=== PATIENT | female | born 1990 | race Caucasian/White ===

== ENCOUNTER 2018-05-02 17:12 | Emergency (ER) | payer BC, MEDICAID ==
[~2018-05-02] VITALS: Ht 175.3 cm; Wt 113.6 kg
[~2018-05-02 17:12] MED LIST: ALBU6.7H INH; GENT5DRO4 EACHEYE
[2018-05-02 18:05] VITALS: BP 147/97
--- NOTE | 2018-05-02 19:27 | NUR ---
C/O TIGHTNESS IN CHEST. BAD COUGH HURTS TO BREATHE
[2018-05-02] MEDS ORDERED: guaiFENesin/codeine phos 10ml UD oral syrup PO ONE (20:05)
[2018-05-02] MEDS ORDERED: GUAI473S11 PO (22:07)
== END 2018-05-02 22:29 | disposition home or self-care (01) ==
LOC: ER 17:13
DX: R50.9 Fever, unspecified (principal); R05 Cough; R11.0 Nausea; R09.81 Nasal congestion; J45.909 Unspecified asthma, uncomplicated; F41.9 Anxiety disorder, unspecified; F32.9 Major depressive disorder, single episode, unspecified; Z90.49 Acquired absence of other specified parts of digestive tract; Z88.2 Allergy status to sulfonamides
CPT/HCPCS: 87502; 87503; 99283

== ENCOUNTER 2018-09-01 19:00 | Emergency (ER) | payer BC, MEDICAID ==
[~2018-09-01] VITALS: Ht 170.2 cm; Wt 120.5 kg
[2018-09-01] MEDS ORDERED: dexamethasone sod phosphate 10mg/ml inj IV STA (22:09)
[2018-09-01] MEDS ORDERED: metoclopramide 5 mg/ml inj IV ONE (22:10)
[2018-09-01] MEDS ORDERED: ketorolac trometh. 30mg/ml inj. IV ONE (22:10)
[2018-09-01] MEDS ORDERED: normal saline 1000ML IV soln IVB ONE (22:10)
[2018-09-01 22:39] LABS: BASOPHILS # (AUTO) 0.1 X10'3 (0-0.2); BASOPHILS % (AUTO) 0.9 % (0-1); EOSINOPHILS # (AUTO) 0.2 X10'3 (0-0.9); EOSINOPHILS % (AUTO) 1.3 % (0-6); HEMATOCRIT 41.8 % (35.0-45.0); HEMOGLOBIN 14.4 g/dl (12.0-16.0); LYMPHOCYTES # (AUTO) 3.9 X10'3 (1.1-4.8); LYMPHOCYTES % (AUTO) 26.3 % (21-51); MEAN CORPUSCULAR HEMOGLOBIN 30.5 PG (27.0-31.0); MEAN CORPUSCULAR HGB CONC 34.4 g/dL (33.0-36.5); MEAN CORPUSCULAR VOLUME 88.6 FL (78-98); MEAN PLATELET VOLUME 8.2 FL (7.4-10.4); MONOCYTES # (AUTO) 1.2 X10'3 (0-0.9); MONOCYTES % (AUTO) 7.8 % (2-12); NEUTROPHILS # (AUTO) 9.6 X10'3 (1.8-7.7); NEUTROPHILS % (AUTO) 63.7 % (42-75); PLATELET COUNT 287 X10'3 (140-440); RED BLOOD COUNT 4.72 X10'6 (4.20-5.60)
[2018-09-01 22:53] LABS: ALANINE AMINOTRANSFERASE 66 U/L (12-78); ALBUMIN 3.7 G/DL (3.4-5.0); ALBUMIN/GLOBULIN RATIO 0.9 (1.1-1.5); ALKALINE PHOSPHATASE 102 IU/L (46-116); ANION GAP 6 (8-16); ASPARTATE AMINO TRANSFERASE 22 U/L (10-37); BILIRUBIN,TOTAL 0.2 MG/DL (0.1-1.0); BLOOD UREA NITROGEN 15 MG/DL (7-18); BUN/CREATININE RATIO 22.1 (6.6-38.0); CALCIUM 9.6 MG/DL (8.5-10.1); CHLORIDE 104 MMOL/L (99-107); CREATININE 0.68 MG/DL (0.40-0.90); GLUCOSE 137 MG/DL (70-104); POTASSIUM 3.4 MMOL/L (3.5-5.1); SODIUM 139 MMOL/L (135-145); TOTAL CARBON DIOXIDE 29.4 MMOL/L (24-32); TOTAL PROTEIN 7.7 G/DL (6.4-8.2); eGFR > 90 ML/MIN
[2018-09-01 22:56] VITALS: BP 129/60
[2018-09-01] MEDS ORDERED: ondansetron/PF 4mg/2ml inj IV ONE (23:40)
[2018-09-01 23:43] LABS: URINE HCG NEGATIVE (NEG)
[2018-09-01 23:44] LABS: CLARITY,URINE CLEAR (Clear); COLOR,URINE YELLOW (Yellow); GLUCOSE, URINE NEGATIVE (Neg); KETONES,URINE NEGATIVE (Neg); LEUKOCYTE ESTERASE ,URINE NEGATIVE (Neg); NITRITES, URINE POSITIVE (Neg); OCCULT BLOOD,URINE NEGATIVE (Neg); PROTEIN,URINE NEGATIVE (Neg); UROBILINOGEN,URINE 0.2 E.U/dL (0.2-1.0)
[2018-09-01 23:45] LABS: UA COLLECTION TYPE CLN CATCH MIDSTREAM
[2018-09-01 23:57] LABS: BACTERIA,URINE 2+ /HPF (Neg); CAL OXALATE CRYSTALS 1+ /HPF (NEGATIVE); MUCUS STRANDS NONE SEEN /LPF (Neg); RBC,URINE NONE SEEN /HPF (0-2); SQUAMOUS EPITHELIAL CELL,UR MODERATE /LPF (FEW); WBC,URINE 0-4 /HPF (0-4)
[2018-09-02] MEDS ORDERED: ONDA4TAB6 PO (00:07)
[2018-09-02] MEDS ORDERED: SUMA100T PO (00:07)
== END 2018-09-02 00:21 | disposition home or self-care (01) ==
LOC: ER 19:01
DX: R51 Headache (principal); H53.8 Other visual disturbances; R11.0 Nausea; J45.909 Unspecified asthma, uncomplicated; Z90.49 Acquired absence of other specified parts of digestive tract; Z88.2 Allergy status to sulfonamides; Z88.8 Allergy status to other drugs, medicaments and biological substances; Z79.899 Other long term (current) drug therapy
CPT/HCPCS: 36415; 70450; 80053; 81001; 81025; 85025; 87088; 96374; 96375; 99284; J1100; J1885; J2405; J2765; J7030

== ENCOUNTER 2019-07-09 20:00 | Emergency (ER) | payer BC ==
[~2019-07-09] VITALS: Ht 172.7 cm; Wt 122.7 kg
[~2019-07-09 20:00] MED LIST changes: -ALBU6.7H INH; +ALBU6.7H9 INH; +ONDA4TAB6 PO
[2019-07-09] MEDS ORDERED: ROBCFL PO (22:00)
[2019-07-09] MEDS ORDERED: IBUP-1984 PO (22:00)
[2019-07-09 22:07] VITALS: BP 155/80
== END 2019-07-09 22:09 | disposition home or self-care (01) ==
LOC: ER 20:00
DX: J06.9 Acute upper respiratory infection, unspecified (principal); E11.9 Type 2 diabetes mellitus without complications; F41.9 Anxiety disorder, unspecified; F31.9 Bipolar disorder, unspecified; F17.200 Nicotine dependence, unspecified, uncomplicated; Z90.49 Acquired absence of other specified parts of digestive tract; Z88.2 Allergy status to sulfonamides; Z88.1 Allergy status to other antibiotic agents; Z79.899 Other long term (current) drug therapy
CPT/HCPCS: 99282

== ENCOUNTER 2019-11-15 20:52 | Emergency (ER) | payer BC ==
[~2019-11-15] VITALS: Ht 172.7 cm; Wt 120.2 kg
[2019-11-15] MEDS ORDERED: normal saline 1000ml 1,000 ML IV ONE ×2 (21:50)
[2019-11-15] MEDS ORDERED: ondansetron/PF 4mg/2ml inj IV ONE (21:55)
[2019-11-15 22:26] LABS: BASOPHILS # (AUTO) 0.1 X10'3 (0-0.2); BASOPHILS % (AUTO) 0.8 % (0-1); EOSINOPHILS # (AUTO) 0.2 X10'3 (0-0.9); EOSINOPHILS % (AUTO) 1.3 % (0-6); HEMATOCRIT 45.9 % (35.0-45.0); HEMOGLOBIN 15.5 g/dl (12.0-16.0); LYMPHOCYTES # (AUTO) 3.3 X10'3 (1.1-4.8); LYMPHOCYTES % (AUTO) 23.8 % (21-51); MEAN CORPUSCULAR HEMOGLOBIN 30.2 PG (27.0-31.0); MEAN CORPUSCULAR HGB CONC 33.8 g/dL (33.0-36.5); MEAN CORPUSCULAR VOLUME 89.2 FL (78-98); MONOCYTES # (AUTO) 0.9 X10'3 (0-0.9); MONOCYTES % (AUTO) 6.3 % (2-12); NEUTROPHILS # (AUTO) 9.4 X10'3 (1.8-7.7); NEUTROPHILS % (AUTO) 67.8 % (42-75); PLATELET COUNT 297 X10'3 (140-440); RED BLOOD COUNT 5.14 X10'6 (4.20-5.60); RED CELL DISTRIBUTION WIDTH 13.6 % (11.5-14.5); WHITE BLOOD COUNT 13.8 X10'3 (4.5-11.0)
[2019-11-15 22:29] LABS: ALANINE AMINOTRANSFERASE 161 U/L (12-78); ALBUMIN 3.7 G/DL (3.4-5.0); ALBUMIN/GLOBULIN RATIO 0.9 (1.1-1.5); ALKALINE PHOSPHATASE 131 IU/L (46-116); ANION GAP 11 (8-16); ASPARTATE AMINO TRANSFERASE 61 U/L (10-37); BILIRUBIN,TOTAL 0.3 MG/DL (0.1-1.0); BLOOD UREA NITROGEN 12 MG/DL (7-18); BUN/CREATININE RATIO 12.2 (6.6-38.0); CALCIUM 8.8 MG/DL (8.5-10.1); CHLORIDE 97 MMOL/L (99-107); CREATININE 0.98 MG/DL (0.40-0.90); GLUCOSE 355 MG/DL (70-104); LIPASE 117 U/L (73-393); SODIUM 133 MMOL/L (135-145); TOTAL CARBON DIOXIDE 24.9 MMOL/L (24-32); eGFR 66 ML/MIN
[2019-11-15 22:31] LABS: POTASSIUM 3.8 MMOL/L (3.5-5.1)
[2019-11-15 23:32] LABS: CLARITY,URINE CLEAR (Clear); COLOR,URINE YELLOW (Yellow); GLUCOSE, URINE >=1000 mg/dl (Neg); KETONES,URINE 15 mg/dl (Neg); LEUKOCYTE ESTERASE ,URINE NEGATIVE (Neg); NITRITES, URINE NEGATIVE (Neg); OCCULT BLOOD,URINE NEGATIVE (Neg); PROTEIN,URINE NEGATIVE (Neg); URINE HCG NEGATIVE (NEG); UROBILINOGEN,URINE 0.2 E.U/dL (0.2-1.0)
[2019-11-15 23:37] LABS: UA COLLECTION TYPE CLN CATCH MIDSTREAM
[2019-11-15 23:38] LABS: BACTERIA,URINE NONE SEEN /HPF (Neg); RBC,URINE NONE SEEN /HPF (0-2); SQUAMOUS EPITHELIAL CELL,UR MODERATE /LPF (FEW); WBC,URINE 0-4 /HPF (0-4)
[2019-11-16] MEDS ORDERED: ONDA4TAB6 PO (00:22)
[2019-11-16] MEDS ORDERED: normal saline 1000ml 1,000 ML IV ONE (00:25)
[2019-11-16 01:32] VITALS: BP 129/80
== END 2019-11-16 01:36 | disposition home or self-care (01) ==
LOC: ER 20:53
DX: E11.65 Type 2 diabetes mellitus with hyperglycemia (principal); R11.2 Nausea with vomiting, unspecified; F41.9 Anxiety disorder, unspecified; F31.9 Bipolar disorder, unspecified; Z90.49 Acquired absence of other specified parts of digestive tract; Z72.89 Other problems related to lifestyle; Z88.2 Allergy status to sulfonamides; Z88.8 Allergy status to other drugs, medicaments and biological substances; Z79.899 Other long term (current) drug therapy
CPT/HCPCS: 36415; 71045; 80053; 81001; 81025; 82948; 83690; 85025; 96361; 96374; 99284; J2405; J7030

== ENCOUNTER 2020-02-20 14:46 | Emergency (ER) | payer BC ==
[~2020-02-20] VITALS: Ht 172.7 cm; Wt 125.5 kg
[2020-02-20 14:59] VITALS: BP 122/77
== END 2020-02-20 17:05 | disposition home or self-care (01) ==
LOC: ER 14:46
DX: S93.409A Sprain of unspecified ligament of unspecified ankle, initial encounter (principal); E11.9 Type 2 diabetes mellitus without complications; F41.9 Anxiety disorder, unspecified; F31.9 Bipolar disorder, unspecified; F32.9 Major depressive disorder, single episode, unspecified; R51.9 Headache, unspecified; F17.200 Nicotine dependence, unspecified, uncomplicated; Z98.890 Other specified postprocedural states; Z90.49 Acquired absence of other specified parts of digestive tract; Z88.2 Allergy status to sulfonamides; Z88.8 Allergy status to other drugs, medicaments and biological substances; Z79.899 Other long term (current) drug therapy; X50.9XXA Other and unspecified overexertion or strenuous movements or postures, initial encounter; Y93.89 Activity, other specified; Y92.89 Other specified places as the place of occurrence of the external cause; Y99.8 Other external cause status
CPT/HCPCS: 99283

== ENCOUNTER 2024-04-19 08:11 | Emergency (ER) | payer BC, MEDICAID ==
[~2024-04-19] VITALS: Ht 170.2 cm; Wt 115.9 kg
[~2024-04-19 08:11] MED LIST changes: +ALBU6.7H14 INH; -ALBU6.7H9 INH; +GEN0.3OS EACHEYE; -GENT5DRO4 EACHEYE
[2024-04-19 08:21] VITALS: BP 138/99; PULSE 90; RESP 15; TEMP 97.9; O2SAT 96
[2024-04-19] MEDS ORDERED: DICL50TA8 PO (08:55)
== END 2024-04-19 09:02 | disposition home or self-care (01) ==
LOC: ER 08:11
DX: M25.571 Pain in right ankle and joints of right foot (principal); E11.9 Type 2 diabetes mellitus without complications; F41.9 Anxiety disorder, unspecified; F32.A Depression, unspecified; Z72.89 Other problems related to lifestyle; Z79.899 Other long term (current) drug therapy; Z98.890 Other specified postprocedural states; Z88.2 Allergy status to sulfonamides; Z88.8 Allergy status to other drugs, medicaments and biological substances; Z90.49 Acquired absence of other specified parts of digestive tract
CPT/HCPCS: 73610; 99283; A6449

== ENCOUNTER 2024-10-10 14:48 | Emergency (ER) | payer MEDICAID ==
[~2024-10-10] VITALS: Ht 170.2 cm; Wt 106.8 kg
[~2024-10-10 14:48] MED LIST changes: +DICL50TA8 PO
--- NOTE | 2024-10-10 15:04 | ELECTROCARDIOGRAPH REPORT ---
[facility] Test Date: 2024-10-10 Test Time: 14:54:53 Pat Name: ZEINAB DUNBAR Department: EMERGENCY ROOM Patient ID: [id number] Room: Gender: F Fitness Technician: : 1990 Requested By: NANCY PERDOMO Order Number: [id number] Reading MD: Measurements Intervals [place] Rate: 96 P: 71 [place]: 142 QRS: 66 QRSD: 94 T: 38 QT: 352 QTc: 445 Interpretive Statements Sinus rhythm Low voltage, precordial leads Baseline wander in lead(s) III,V2,V4,V5 Please click the below link to view image of tracing.
--- NOTE | 2024-10-10 15:07 | Physician Documentation ---
History of Present Illness ~ Stated Complaint: CP Time Seen by MD: 15:55 Primary Medical Doctor: NONE HPI This is a 34-year-old female with a history of type 2 diabetes who presents today with acute onset sharp midsternal chest pain. States that she does have a history of anxiety and takes hydroxyzine. As that she check her blood pressure this morning, she thought maybe her blood pressure was low secondary to the hydroxyzine for her anxiety. She states that she was told to come here by her nursing friend just to get checked out to make sure she does not keel over" patient reports pain came on at rest and is episodic in nature lasting approximately 20-30 seconds described as sharp and without palliating or precipitating factors. Denies: Nausea vomiting diarrhea radiating chest pain or back pain Day of Onset: Oct 10, 2024 Tetanus within 5 Years?: No Allergies: Coded Allergies: sulfamethoxazole (Unverified Allergy, Unknown, 07/23/14) trimethoprim (Unverified Allergy, Unknown, 07/23/14) Active Prescriptions See Medication Reconciliation Form. Medication Reconciliation Scheduled Albuterol Sulfate (Proventil Hfa), 2 PUFFS INH Q6H Diclofenac Sodium (Diclofenac Sodium), 1 TAB PO Q12H Gentamicin Sulfate (Gentak), 2 DROP EACHEYE QID Ondansetron Hcl (Zofran), 1 TAB PO Q6H Ondansetron Hcl (Zofran), 1 TAB PO Q6H Past Medical History Past Medical History: Headache, Diabetes, Anxiety, Bipolar, Depression Past Surgical History: cholecystectomy, Alcohol Use: Occasionally Drug Use: none Lives with: Family Lives In: Home Occupation: employed Review of Systems All Other Systems at this time: Reviewed and Negative ROS As stated above in the HPI, otherwise all systems are reviewed and negative. Physical Exam Physical Exam General: Alert, no apparent distress. Chest: No accessory muscle use. Respiratory: No increased work of breathing, speaking full clear sentences, no respiratory distress, lung sounds clear in all sommers Cardiovascular: Regular rate and rhythm, no murmurs. Back: No CVA tenderness Gastrointestinal: Soft, nontender, nondistended. Bowels sounds present. Neurologic: Oriented x4. Psychiatric: Normal mood and affect. Skin: Normal color, warm and dry. No edema, no ecchymosis. Progress Results/Orders Results/Orders Vital Signs 10/10/24 10/10/24 10/10/24 10/10/24 15:03 15:55 15:55 17:01 Temp 97.8 97.8 98.0 Pulse 98 88 87 Resp 17 12 13 16 B/P (MAP) 141/98 131/88 (102) 119/83 Pulse Ox 99 95 97 O2 Flow Rate 0 Laboratory Tests Test 10/10/24 15:52 White Blood Count 9.9 Red Blood Count 5.05 Hemoglobin 15.3 Hematocrit 43.9 Mean Corpuscular Volume 86.8 Mean Corpuscular Hemoglobin 30.2 Mean Corpuscular Hemoglobin Concent 34.8 Red Cell Distribution Width 13.3 Platelet Count 330 Mean Platelet Volume 7.9 Neutrophils (%) (Auto) 69.7 Lymphocytes (%) (Auto) 21.6 Monocytes (%) (Auto) 6.9 Eosinophils (%) (Auto) 1.0 Basophils (%) (Auto) 0.8 Neutrophils # (Auto) 6.9 Lymphocytes # (Auto) 2.1 Monocytes # (Auto) 0.7 Eosinophils # (Auto) 0.1 Basophils # (Auto) 0.1 CBC Comment Sodium Level 135 Potassium Level 3.8 Chloride Level 100 Carbon Dioxide Level 30.0 Anion Gap 5 L Blood Urea Nitrogen 5 L Creatinine 0.63 Estimated GFR/1.73 m2 > 90 BUN/Creatinine Ratio 7.9 L Glucose Level 148 H Calcium Level 9.0 Troponin I High Sensitivity 4 Albumin 3.6 Chemistry Comments EKG/XRAY/CT/US/VASC/MRI EKG : Additional Comment EKG at 1454 interpreted by myself as sinus rhythm at a rate of 96, normal axis, no ST segment elevation or depression Chest X-Ray : Additional Comments EXAM: DI CHEST,SINGLE VIEW CLINICAL HISTORY: CP TECHNIQUE: Single AP view of the chest WID: COMPARISON: CHEST,SINGLE VIEW on DOS: 11/15/19 FINDINGS: Lines and tubes: None Chest: The heart size and pulmonary vasculature is within normal limits. No pleural effusion, pneumothorax, or consolidation. The osseous structures are grossly intact. IMPRESSION: No acute cardiopulmonary abnormality. Electronically Signed by:CONSTANZA MCCRACKEN MD Date & Time: 10/10/24 1525 Dictated by: CONSTANZA MCCRACKEN MD Dictation date and time: 10/10/24 6119 I have reviewed and agree with the radiology report. I have reviewed and interpreted the imaging as: No focal consolidation or pneumothorax Heart Score: Heart Score Response (Comments) Value History Slightly Suspicious 0 EKG Normal 0 Age <45 0 Risk Factors 1 or 2 risk factors 1 Troponin Normal limit 0 Total 1 Medical Decision Making Findings This 34-year-old female with a history of anxiety presented with left-sided no nradiating intermittent chest pain without palliating or provoking factors which was described as sharp, patient was otherwise well-appearing and remainder of physical exam benign. EKG did not demonstrate evidence of dysrhythmia, infarction or ischemia, troponin was not elevated and additional labs did not demonstrate evidence of metabolic or electrolyte derangement. It was reassuring patient reported no associated shortness of breath, nausea, or diaphoresis. Heart score of 1, PERC negative, Wells' negative. I have low suspicion for myocardial infarction, pulmonary embolism, or aortic dissection. This patient is otherwise well-appearing with a benign physical exam stable vital signs she is appropriate for outpatient follow up with primary care. Patient provided careful return to care precautions and follow up instructions which he verbalized understanding of. Differential Dx:Considerations: Include: Pneumothorax, Pulmonary contusion, Other (MD, pulmonary embolism, aortic dissection, costochondritis, musculoskeletal pain, anxiety) Departure Time of Disposition: 16:48 Disposition: HOME / SELF CARE / HOMELESS Impression: Primary Impression: Chest pain Qualified Codes: R07.9 - Chest pain, unspecified Condition: Improved Discharge Instructions: Nonspecific Chest Pain, Adult Additional Instructions: The cause of your chest pain is not fully known though it does not appear to be caused by an emergent cardiac problem at this time, please follow up with her primary care provider for further evaluation, you may use ibuprofen and or Tylenol as needed for pain as directed by [id number] packaging. Please follow up with your primary care provider in the next few days. Please return to the emergency department for any new or worsening concerning symptoms including but not including worsening chest pain, chest pain with sweating, shortness of breath, or vomiting, or if you experience difficulty breathing. Referrals: NO PRIMARY CARE PROVIDER (PCP) Education Educated: Patient Educated regarding: diagnosis, treatment, prognosis, need for follow up Signature Scribe Signature: No scribe Attestation: The note accurately reflects work and decisions made by me.MARK ANTHONY Vasquez 10/10/24 20:38 ENEDINA HORTON NP Oct 10, 2024 15:07 DAIANA MARTINEZ Oct 10, 2024 16:36
--- NOTE | 2024-10-10 15:28 | RADIOLOGY REPORT ---
EXAM: DI CHEST,SINGLE VIEW CLINICAL HISTORY: CP TECHNIQUE: Single AP view of the chest WID: COMPARISON: CHEST,SINGLE VIEW on DOS: 11/15/19 FINDINGS: Lines and tubes: None Chest: The heart size and pulmonary vasculature is within normal limits. No pleural effusion, pneumothorax, or consolidation. The osseous structures are grossly intact. IMPRESSION: No acute cardiopulmonary abnormality.
[2024-10-10 16:03] LABS: BASOPHILS # (AUTO) 0.1 X10'3 (0-0.2); BASOPHILS % (AUTO) 0.8 % (0-1); EOSINOPHILS # (AUTO) 0.1 X10'3 (0-0.9); HEMATOCRIT 43.9 % (35.0-45.0); HEMOGLOBIN 15.3 g/dl (12.0-16.0); LYMPHOCYTES # (AUTO) 2.1 X10'3 (1.1-4.8); LYMPHOCYTES % (AUTO) 21.6 % (21-51); MEAN CORPUSCULAR HEMOGLOBIN 30.2 PG (27.0-31.0); MEAN CORPUSCULAR HGB CONC 34.8 g/dL (33.0-36.5); MEAN CORPUSCULAR VOLUME 86.8 FL (78-98); MEAN PLATELET VOLUME 7.9 FL (7.4-10.4); MONOCYTES # (AUTO) 0.7 X10'3 (0-0.9); MONOCYTES % (AUTO) 6.9 % (2-12); NEUTROPHILS # (AUTO) 6.9 X10'3 (1.8-7.7); NEUTROPHILS % (AUTO) 69.7 % (42-75); PLATELET COUNT 330 X10'3 (140-440); RED BLOOD COUNT 5.05 X10'6 (4.20-5.60); RED CELL DISTRIBUTION WIDTH 13.3 % (11.5-14.5); WHITE BLOOD COUNT 9.9 X10'3 (4.5-11.0)
[2024-10-10 16:13] LABS: ALBUMIN 3.6 G/DL (3.4-5.0); ANION GAP 5 (8-16); BLOOD UREA NITROGEN 5 MG/DL (7-18); BUN/CREATININE RATIO 7.9 (10.0-20.0); CHLORIDE 100 MMOL/L (99-107); CREATININE 0.63 MG/DL (0.40-0.90); GLUCOSE 148 MG/DL (70-104); POTASSIUM 3.8 MMOL/L (3.5-5.1); SODIUM 135 MMOL/L (135-145); eCRCL 120 ML/MIN; eGFR > 90 ML/MIN
[2024-10-10 17:01] VITALS: BP 119/83; PULSE 87; RESP 16; TEMP 98; O2SAT 97
== END 2024-10-10 17:02 | disposition home or self-care (01) ==
LOC: ER 14:48
DX: R07.2 Precordial pain (principal); E11.9 Type 2 diabetes mellitus without complications; F31.9 Bipolar disorder, unspecified; F41.9 Anxiety disorder, unspecified; Z88.1 Allergy status to other antibiotic agents; Z88.2 Allergy status to sulfonamides; Z90.49 Acquired absence of other specified parts of digestive tract
CPT/HCPCS: 36415; 71045; 80048; 84484; 85025; 93005; 99285

== ENCOUNTER 2025-03-01 11:09 | Emergency (ER) | payer MEDICAID ==
[~2025-03-01] VITALS: Ht 170.2 cm; Wt 92.6 kg
[2025-03-01 11:18] VITALS: BP 100/82; PULSE 112; RESP 18; TEMP 98.5; O2SAT 99
--- NOTE | 2025-03-01 11:24 | Physician Documentation ---
History of Present Illness ~ Chief Complaint: Dizziness Stated Complaint: DIZZINESS/LIPS TURNING BLUE Time Seen by MD: 12:10 Primary Medical Doctor: NONE HPI Patient is a pleasant 35-year-old female that presents to the emergency department for evaluation of intermittent dizziness/vertigo times several months. Patient reports that the episodes come on randomly. Patient reports that she has a history of migraine that she takes Imitrex for. Patient reports that the most recent episode of her dizziness/vertigo developed after her last dose of Imitrex. Patient reports that she has been dizzy with the room spinning all day today. Patient reports a slight headache currently no nausea vomiting diarrhea fever, chills chest pain shortness of breath at this time. Medication Reconciliation Allergies: Coded Allergies: sulfamethoxazole (Unverified Allergy, Unknown, 03/01/25) trimethoprim (Unverified Allergy, Unknown, 03/01/25) Scheduled Albuterol Sulfate (Proventil Hfa), 2 PUFFS INH Q6H Diclofenac Sodium (Diclofenac Sodium), 1 TAB PO Q12H Gentamicin Sulfate (Gentak), 2 DROP EACHEYE QID Ondansetron Hcl (Zofran), 1 TAB PO Q6H Ondansetron Hcl (Zofran), 1 TAB PO Q6H Past Medical History Past Medical History: Headache, Diabetes, Anxiety, Bipolar, Depression Past Surgical History: cholecystectomy, Alcohol Use: Occasionally Drug Use: none Lives with: Family Lives In: Home Occupation: employed Review of Systems ROS As stated above in the HPI, otherwise all systems are reviewed and negative. Physical Exam Vital Signs: Temperature: 98.5, Source: Temporal, Heart Rate: 112, Respiratory Rate: 18, BP: 100/82, Pulse Oximetry: 99, Weight: 92.600 Oxygen Flow Rate: 0 Physical Exam VITALS: Reviewed and as above. GENERAL: Alert, no apparent distress. HEENT: Normocephalic, atraumatic, PERRL, EOMI, dry mucosa, no erythema RESPIRATORY: Lungs clear, normal breath sounds, no respiratory distress. CHEST: No accessory muscle use, no retractions CV: Regular rate, rhythm, no edema, no murmur, No: JVD GI: Soft, non-tender, bowels sounds present, no rebound, guarding, or rigidity BACK: No CVA tenderness, or swelling MUSCULOSKELETAL No deformities, no edema SKIN: Warm and dry, no rash NEURO: Oriented x4, No motor or sensory deficit PSYCH: Normal mood and affect, no agitation Progress Results/Orders Results/Orders Orders - CHERELLE CHOI INSEAM TRIMMER Urinalysis, Cult If Indicated (03/01/25 13:02) Hcg, Ur Ql (03/01/25 13:02) * Iv Access / Saline Lock * (03/01/25 14:13) Ct Head (03/01/25 14:44) Completed Orders - CHERELLE CHOI INSEAM TRIMMER Electrocardiogram (03/01/25 11:14) Cbc/Diff (03/01/25 13:02) CMP (03/01/25 13:02) Meclizine Tablets (Antivert Tablet) (03/01/25 13:20) Ct Head (03/01/25 14:44) Medications Received in ER Medications (Trade) Dose Ordered Sig/Kalia Route PRN Reason Start Time Stop Time Status Last Admin Dose Admin (Antivert tablet) 12.5 mg ONCE ONCE PO 03/01/25 13:20 03/01/25 13:21 DC 03/01/25 13:38 12.5 MG Vital Signs 03/01/25 11:18 Temp 98.5 Pulse 112 Resp 18 B/P (MAP) 100/82 Pulse Ox 99 O2 Flow Rate 0 Laboratory Tests Test 03/01/25 13:39 White Blood Count 11.0 Red Blood Count 5.31 Hemoglobin 16.0 Hematocrit 46.5 H Mean Corpuscular Volume 87.6 Mean Corpuscular Hemoglobin 30.1 Mean Corpuscular Hemoglobin Concent 34.4 Red Cell Distribution Width 13.7 Platelet Count 347 Mean Platelet Volume 8.8 Neutrophils (%) (Auto) 65.0 Lymphocytes (%) (Auto) 26.6 Monocytes (%) (Auto) 6.7 Eosinophils (%) (Auto) 0.7 Basophils (%) (Auto) 1.0 Neutrophils # (Auto) 7.2 Lymphocytes # (Auto) 2.9 Monocytes # (Auto) 0.7 Eosinophils # (Auto) 0.1 Basophils # (Auto) 0.1 CBC Comment Sodium Level 136 Potassium Level 4.2 Chloride Level 101 Carbon Dioxide Level 26.7 Anion Gap 8 Blood Urea Nitrogen 12 Creatinine 0.66 Estimated GFR/1.73 m2 > 90 BUN/Creatinine Ratio 18.2 Glucose Level 101 Calcium Level 8.9 Total Bilirubin 0.5 Aspartate Amino Transf (AST/SGOT) 16 Alanine Aminotransferase (ALT/SGPT) 29 Alkaline Phosphatase 94 Total Protein 8.2 Albumin 4.0 Globulin 4.2 Albumin/Globulin Ratio 1.0 L Chemistry Comments Medical Decision Making Additional information obtaine: other Findings 35-year-old female presented with intermittent vertigo episodes over several years, most recently following sumatriptan use for migraine. Associated symptoms included mild nausea; she denied vomiting, diarrhea, fever, or chills. Past medical history is notable for migraines. Diagnostic evaluation: Recent ECG at PCP was unremarkable. Laboratory studies today were within normal limits. Head CT was negative for acute pathology. No focal neurologic deficits were noted during ED assessment. The patients vertigo episodes are consistent with a spontaneous episodic vestibular syndrome, most likely vestibular migraine given her migraine history and absence of other concerning features. No evidence of central nervous system pathology or acute stroke was found, and imaging is low-yield in isolated vertigo without neurologic findings. Medical decision-making: Differential diagnosis included vestibular migraine, benign paroxysmal positional vertigo, Meniere disease, and vestibular neuritis. The clinical presentation, negative imaging, and history support vestibular migraine as the most likely etiology. No acute intervention required beyond symptomatic management. Treatment and disposition: Patient is being discharged with a prescription for meclizine 12.5 mg for short-term symptomatic relief of vertigo and nausea. Meclizine is a commonly used vestibular suppressant for acute vertigo; prolonged use is discouraged due to potential inhibition of central compensation and anticholinergic side effects. Patient advised to use meclizine only as needed for acute episodes and to avoid chronic use. She will follow up with her primary care provider for further evaluation and consideration of migraine prophylaxis if attacks persist. Return precautions: Patient instructed to return to the ED for worsening symptoms, new neurologic deficits, persistent vomiting, or other concerning changes. Summary: Presentation and workup are consistent with vestibular migraine. No evidence of central pathology. Discharged with short-term vestibular suppressant and outpatient follow-up. Differential Dx:Considerations: Include: anemia, CVA, dehydration, dysrhythmia, electrolyte imbalance, encephalopathy, Guillain-[place], hypoglycemia, hypotension, hypovolemia, labyrinthitis, Meniere's disease, myasathenia gravis, myocardial infarction, pulmonary embolus, renal failure, respiratory failure, T IA, VBI, vertigo central, vertigo peripheral, vestibular neuronitis, other Departure Disposition: 01 HOME / SELF CARE / HOMELESS Impression: Primary Impression: Vertigo Condition: Stable Discharge Instructions: Dizziness, Vertigo Additional Instructions: You were seen today for vertigo (a spinning or dizzy feeling) after taking your migraine medication. Your tests, including blood work, ECG, and a head CT scan, were normal. You are being discharged with a prescription for meclizine 12.5 mg to help with your symptoms. How to take meclizine: Take meclizine 12.5 mg by mouth as prescribed for dizziness or nausea. Use only as needed for symptoms. Do not take more than the recommended dose. Meclizine may cause drowsiness. Avoid driving, operating machinery, or drinking alcohol while taking this medication. If you are , , or have medical conditions like asthma, glaucoma, or trouble urinating, talk to your doctor before using meclizine. What to expect: Meclizine can help reduce dizziness and nausea, but it should only be used for a few days. Most people feel better with rest and time. Avoid sudden movements and get up slowly from sitting or lying down to prevent falls. Follow-up: Schedule a follow-up visit with your primary care provider to discuss your vertigo and migraine management. When to return to the emergency department: If your symptoms get worse or do not improve If you have new symptoms like trouble speaking, weakness, numbness, severe headache, vision changes, fainting, chest pain, or trouble walking If you have repeated vomiting, fever, or chills Other tips: Keep track of your symptoms and any triggers (such as certain foods, stress, or lack of sleep) that may make your migraines or vertigo worse. Avoid activities that could be dangerous if you become dizzy. If you have any questions or concerns, contact your healthcare provider. Referrals: NO PRIMARY CARE PROVIDER (PCP) Prescriptions Meclizine HCl (Meclizine HCl) 12.5 Mg Tablet 1 TAB PO Q8H for dizziness for 10 Days, #30 TAB 0 Refills Prov: CHERELLE CHOI 03/01/25 Education Educated: Patient Educated regarding: diagnosis, treatment, need for follow up Signature Scribe Signature: A Attestation: Scribed for Cherelle Choi by MARK ANTHONY Bishop . 03/01/25 16:45 CHERELLE CHOI Mar 01, 2025 11:24
--- NOTE | 2025-03-01 12:31 | ELECTROCARDIOGRAPH REPORT ---
[facility] Test Date: 2025-03-01 Test Time: 11:14:44 Pat Name: ZEINAB DUNBAR Department: EMERGENCY ROOM Patient ID: [id number] Room: Gender: F Warp Clamper: LINH : 1990 Requested By: MARGARITA CHOI Order Number: [id number] Reading MD: Dr. TORIN Llanos Measurements Intervals [place] Rate: 118 P: 73 [place]: 133 QRS: 41 QRSD: 88 T: 117 QT: 310 QTc: 435 Interpretive Statements Atrial-paced complexes Aberrant conduction of SV complex(es) Borderline T wave abnormalities Baseline wander in lead(s) V4,V5,V6 Electronically Signed On 03-03-2025 17:38:[address] TORIN Llanos Please click the below link to view image of tracing.
[2025-03-01 14:10] LABS: MEAN PLATELET VOLUME 8.8 FL (7.4-10.4); RED CELL DISTRIBUTION WIDTH 13.7 % (11.5-14.5)
[2025-03-01 14:26] LABS: CREATININE 0.66 MG/DL (0.40-0.90); TOTAL CARBON DIOXIDE 26.7 MMOL/L (24-32); eCRCL 113 ML/MIN; eGFR > 90 ML/MIN
--- NOTE | 2025-03-01 14:56 | RADIOLOGY REPORT ---
CLINICAL HISTORY: Several months of intermittent episodes of vertigo accompanied by headache TECHNIQUE: Helical scanning was performed of the head from the skull base to the vertex. Multiplanar reconstructions were performed. This exam was performed according to our departmental dose optimization program. Up-to-date CT equipment and radiation dose reduction techniques are utilized as appropriate. CTDI 45 DLP 767 COMPARISON: None FINDINGS: There is no evidence for acute intracranial hemorrhage, acute ischemic changes, mass, mass effect, or extra-axial fluid collection. There is no hydrocephalus or midline shift. There is no effacement of the cerebral sulci and basal subarachnoid cisterns. The devi-white matter differentiation is well maintained. The imaged paranasal sinuses are clear. IMPRESSION: NO ACUTE INTRACRANIAL ABNORMALITY SEEN.
[2025-03-01] MEDS ORDERED: MECL-226 PO (16:45)
== END 2025-03-01 17:42 | disposition home or self-care (01) ==
LOC: ER 11:10
DX: R42 Dizziness and giddiness (principal); E11.9 Type 2 diabetes mellitus without complications; F31.9 Bipolar disorder, unspecified; F41.9 Anxiety disorder, unspecified; Z88.2 Allergy status to sulfonamides; Z88.8 Allergy status to other drugs, medicaments and biological substances; Z90.49 Acquired absence of other specified parts of digestive tract; Z95.0 Presence of cardiac pacemaker; Z79.899 Other long term (current) drug therapy; Z72.89 Other problems related to lifestyle
CPT/HCPCS: 36415; 70450; 80053; 85025; 93005; 99284; J8597